=== PATIENT | male | born 1940 | race Caucasian/White ===

== ENCOUNTER → 2017-09-26 | Outpatient (CLI) | payer MEDICARE, OTHER ==
[~2017-09-26] MED LIST: ALTACE; ASCO100T PO; ASPI-715 PO; CEP500 PO; CHOL400C10 PO; FISH OIL1 CAP PO; IBU600 PO; LOVA10TA63 PO; MULT1CAP41 PO; RAMI10CA72 PO; SIMV-42 PO; TRA50 PO; ZOCOR; [UNRECOGNIZED DRUG - CODE] PO
[2017-09-26 10:03] LABS: PLATELET COUNT, AUTOMATED 167 K/uL (150-450)
== END ==
LOC: LAB 09:16
PROVIDERS: ATTEND Internal Medicine Nephrology
DX: I12.9 Hypertensive chronic kidney disease with stage 1 through stage 4 chronic kidney disease, or unspecified chronic kidney disease (principal); N18.3 Chronic kidney disease, stage 3 (moderate)
CPT/HCPCS: 36415; 82040; 82306; 82310; 82374; 82435; 82565; 82570; 82947; 83970; 84100; 84132; 84156; 84295; 84520; 85025

== ENCOUNTER → 2018-06-17 | Outpatient (CLI) | payer MEDICARE, OTHER ==
[2018-06-17 08:49] LABS: PLATELET COUNT, AUTOMATED 170 K/uL (150-450)
== END ==
LOC: LAB 08:13
PROVIDERS: ATTEND Internal Medicine Nephrology
DX: N18.3 Chronic kidney disease, stage 3 (moderate) (principal); E55.9 Vitamin D deficiency, unspecified
CPT/HCPCS: 36415; 82040; 82306; 82310; 82374; 82435; 82565; 82947; 83970; 84100; 84132; 84295; 84520; 85025